=== PATIENT | male | born 1985 | race Caucasian/White ===

== ENCOUNTER 2023-04-18 22:24 | Emergency (ER) | payer OTHER, SELFPAY ==
[2023-04-18 22:35] VITALS: BP 146/86; PULSE 77; RESP 20; TEMP 36.1; O2SAT 96; BMI 31.6
--- NOTE | 2023-04-18 22:58 | ED.GENADULT ---
[facility] - General Adult General Chief complaint: Sore Throat Stated complaint: sore throat Time Seen by Provider: 04/18/23 22:43 Source: patient Mode of arrival: ambulatory Limitations: no limitations History of Present Illness HPI narrative: Patient is a 37-year-old male with no pertinent medical problems presenting to emergency department for sore throat. States symptoms have been going on for the past 5 days. Denies any shortness of breath. States has been worse but is managing to eat and drink without issue other than some pain. Denies any side known sick contacts but does state a co-worker started of similar symptoms a couple days after the patient symptoms started. Patient no longer has his tonsils he states. He denies fevers, chills, chest pain, shortness of breath, abdominal pain, headache, lightheadedness, dizziness. No other concerns at this time Related Data Home Medications Medication Instructions Recorded Confirmed citalopram 40 mg tablet 40 mg PO DAILY 04/18/23 04/18/23 Allergies Allergy/AdvReac Type Severity Reaction Status Date / Time No Known Drug Allergies Allergy Verified 04/18/23 22:38 Review of Systems Narrative: Negative unless stated in HPI PFSH PFS Medical History (Updated 04/18/23 @ 23:32 by Allan Tran RN) No significant past medical history Surgical History (Updated 04/18/23 @ 23:32 by Allan Tran RN) No significant past surgical history Social History Smoking Status: Never smoker Second hand tobacco smoke exposure: No How often do you have a drink containing alcohol: never How often do you have six or more drinks on one occasion: Never AUDIT-C Alcohol total score: 0 Non-prescribed substance use: denies use Exam Narrative: Exam Narrative: Const: Well-nourished, Well-developed, in no distress Eyes: PERRL, no conjunctival injection, and symmetrical lids HENT: Atraumatic external nose and ears. Moist mucous membranes. Unable to fully visualize tonsils likely secondary to tonsillectomy, uvula midline Neck: Symmetric, trachea midline, No thyromegaly. MSK:Extremities w/o deformity, Normal Active ROM Skin: Warm, Dry. No rashes or lesions. Neuro: Normal Muscle tone, No focal neurological deficits. Psych: Awake, Alert, & Oriented x3. Appropriate mood and affect. Const: Vital Signs, click to edit/add: Vital Signs - 24 hr 04/18/23 22:35 04/18/23 23:33 04/18/23 23:33 Temperature 97 F L 98.0 F 98.0 F Pulse Rate [Pulse Oximeter] 77 70 70 Respiratory Rate 20 20 20 Blood Pressure [Ri ght Upper Arm] 146/86 H 135/78 135/78 Pulse Oximetry 96 96 Oxygen Delivery Me thod Room Air Room Air Course Vital Signs Vital signs: Initial Vital Signs Respiratory Effort Normal, Spontaneous, Non-Labored 04/18/23 22:34 Respiratory Depth Normal 04/18/23 22:34 Respiratory Pattern Normal 04/18/23 22:34 Vital Signs Temperature 97 F L 04/18/23 22:35 Pulse Rate 77 04/18/23 22:35 Respiratory Rate 20 04/18/23 22:35 Blood Pressure 146/86 H 04/18/23 22:35 Pulse Oximetry 96 04/18/23 22:35 Oxygen Delivery Method Room Air 04/18/23 22:35 Temperature 98.0 F 04/18/23 23:33 Pulse Rate 70 04/18/23 23:33 Respiratory Rate 20 04/18/23 23:33 Blood Pressure 135/78 04/18/23 23:33 Pulse Oximetry 96 04/18/23 23:33 Oxygen Delivery Method Room Air 04/18/23 23:33 Medical Decision Making MDM Narrative Medical decision making narrative: Patient is a 37-year-old male presented emergency depart for sore throat. At this time there is no signs of deep neck space abscess, peritonsillar abscess, David angina or other emergent condition. We will do a COVID/flu/RSV test along with a strep swab. Patient does not want a mono screen at this time. Results came back and he is flu positive. Strep test is negative. He is otherwise doing well at this time and can be discharged home. He is not currently meet criteria for Tamiflu as he is already 5 days out. Lab Data Labs: Lab Results 04/18/23 Range/Units 22:30 SARS-CoV-2 (PCR) Negative SARS-CoV-2 (Negative) Influenza Type A (PCR) POSITIVE PCR FLU A A (Negative) Influenza Type B (PCR) Negative PCR FLU B (Negative) RSV (PCR) Negative PCR RSV (Negative) Group A Strep DNA NOT DETECTED (Not Detectd) Discharge Plan Discharge Clinical Impression: Influenza Patient Disposition: Home, Self-Care Condition: Stable Instructions: Influenza (DC) Additional Instructions: Take Tylenol ibuprofen for her sore throat. Return for new or worsening symptoms. Symptoms will likely resolve on their own. Prescriptions: No Action citalopram 40 mg tablet 40 mg PO DAILY Follow Up/Referrals: Osmany Johnson MD [Primary Care Provider] - Stand Alone Forms: [place] Info Instructions
[2023-04-18 23:09] LABS: Strep A DNA Probe* NOT DETECTED (Not Detectd)
[2023-04-18 23:15] LABS: PCR FLU A POSITIVE PCR FLU A (Negative); PCR FLU B Negative PCR FLU B (Negative); PCR RSV Negative PCR RSV (Negative)
[2023-04-18 23:19] LABS: SARS PCR* Negative SARS-CoV-2 (Negative)
[2023-04-18 23:33] VITALS: BP 135/78; PULSE 70; RESP 20; TEMP 36.7; O2SAT 96
== END 2023-04-18 23:33 | disposition home or self-care (01) ==
PROVIDERS: Emergency Provider Student in an Organized Health Care Education/Training Program; PCP Family Medicine
DX: J11.1 Influenza due to unidentified influenza virus with other respiratory manifestations (principal)
CPT/HCPCS: 87631; 87651; 99282; 99283